=== PATIENT | male | born 1990 | race Caucasian/White ===

== ENCOUNTER 2016-07-30 22:55 | Emergency (ER) | payer MEDICAID ==
[~2016-07-30] VITALS: Ht 170.2 cm; Wt 68.0 kg
--- NOTE | 2016-07-31 00:15 | NUR ---
Patient discharged to home in stable conditon with uncle who picked him up. Written and verbal after care instructions given. Patient verbalizes understanding of instructions.
[2016-07-31 00:17] VITALS: BP 115/68
== END 2016-07-31 00:15 | disposition home or self-care (01) ==
LOC: ER 22:55
DX: F10.129 Alcohol abuse with intoxication, unspecified (principal)
CPT/HCPCS: A4663; J7030